=== PATIENT | female | born 1985 | race Caucasian/White ===

== ENCOUNTER 2020-06-19 05:25 | Emergency (ER) | payer OTHER ==
[~2020-06-19] VITALS: Ht 144.8 cm; Wt 59.0 kg
[2020-06-19] MEDS ORDERED: AMOXICILLIN500 MG PO (06:55)
== END 2020-06-19 07:07 | disposition home or self-care (01) ==
LOC: ED 05:25
DX: S06.9X9A Unspecified intracranial injury with loss of consciousness of unspecified duration, initial encounter (principal); K02.9 Dental caries, unspecified; Y04.8XXA Assault by other bodily force, initial encounter; Z87.891 Personal history of nicotine dependence
CPT/HCPCS: 70450; 99284-25

== ENCOUNTER 2023-02-28 13:12 | Emergency (ER) | payer OTHER ==
[~2023-02-28] VITALS: Ht 144.8 cm; Wt 72.6 kg
[~2023-02-28 13:12] MED LIST: AMOXICILLIN500 MG PO
[2023-02-28 18:07] VITALS: BP 131/88
== END 2023-02-28 18:08 | disposition home or self-care (01) ==
LOC: ED 13:12
DX: S86.001A Unspecified injury of right Achilles tendon, initial encounter (principal); W20.8XXA Other cause of strike by thrown, projected or falling object, initial encounter; Z87.891 Personal history of nicotine dependence; Z79.899 Other long term (current) drug therapy
CPT/HCPCS: 99283

== ENCOUNTER 2023-10-05 01:56 | Emergency (ER) | payer OTHER ==
[~2023-10-05] VITALS: Ht 147.3 cm; Wt 69.0 kg
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
[2023-10-05] MEDS ORDERED: BACTRIM DS TAB1 EACH PO (02:20)
[2023-10-05] MEDS ORDERED: TRAMADOL HCL50 MG PO (02:24)
[2023-10-05 02:41] VITALS: BP 139/88
== END 2023-10-05 02:42 | disposition home or self-care (01) ==
LOC: ED 01:56
DX: L03.011 Cellulitis of right finger (principal); S62.624A Displaced fracture of middle phalanx of right ring finger, initial encounter for closed fracture; L03.317 Cellulitis of buttock; L02.31 Cutaneous abscess of buttock; X58.XXXA Exposure to other specified factors, initial encounter; Z87.891 Personal history of nicotine dependence
CPT/HCPCS: 73140; 99283; A9270

== ENCOUNTER 2024-04-29 21:04 | Emergency (ER) | payer OTHER ==
[~2024-04-29] VITALS: Ht 147.3 cm; Wt 77.5 kg
[~2024-04-29 21:04] MED LIST changes: +BACTRIM DS TAB1 EACH PO; +TRAMADOL HCL50 MG PO
--- OUTSIDE RECORDS SUMMARY | 2024-04-29 21:06 | XMS ---
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 Specialist Events No recent Security Events currently on file CRITERIA MET - 6 ED Visits in 6 Months - PDMP CARE PROVIDERS Bobo Lee Community Health Worker 01/14/2023-Current PHONE: [phone] -, [facility] Dentist: Head Chopper [facility] PHONE: [phone] -Bert- Dentist: Head Chopper Current [facility] PHONE: [phone] TAMARA RIVERA Physician Tester [employer] Current PHONE: [phone] MARY Martinez [facility] Current PHONE: Unknown [facility]: [facility] Current [facility] \[facility], [facility] PHONE: [phone] Deion has no Care Guidelines for this patient. Antonio VISIT COUNT (12 MO.) 10 [facility] TOTAL 12 NOTE: Visits indicate total known visits. ED/UCC VISIT TRACKING (12 MO.) 04/29/2024 21:05 [facility] [place] TYPE: Emergency COMPLAINT: - RECTAL BLEEDING 03/25/2024 17:02 [facility] [place] TYPE: Emergency DIAGNOSES: - Noninfective gastroenteritis and colitis, unspecified - ABD PAIN RIGHT SIDE 02/11/2024 15:01 [facility] [place] TYPE: Emergency DIAGNOSES: - Headache, unspecified - Nausea - Pain in right lower leg - Unspecified injury of right wrist, hand and finger(s), initial encounter - HEADACHE VOMITING 01/26/2024 17:29 [facility] [place] TYPE: Emergency DIAGNOSES: - Low back pain, unspecified - BACK PAIN 11/03/2023 16:22 [facility] [place] TYPE: Emergency DIAGNOSES: - Migraine, unspecified, not intractable, without status migrainosus - migraine 11/01/2023 17:50 [facility] [place] TYPE: Emergency DIAGNOSES: - Acute upper respiratory infection, unspecified - Migraine, unspecified, intractable, without status migrainosus - Unspecified nonsuppurative otitis media, bilateral - headache/ ear pain 10/20/2023 04:15 [facility] [place] TYPE: Emergency DIAGNOSES: - Bronchitis, not specified as acute or chronic - Diarrhea, unspecified - SOB COUGH 10/05/2023 01:56 [facility] [place] TYPE: Emergency COMPLAINT: - RT HAND INJURY DIAGNOSES: - Cellulitis of buttock - Cellulitis of right finger - Cutaneous abscess of buttock - Displaced fracture of middle phalanx of right ring finger, initial encounter for closed fracture - Exposure to other specified factors, initial encounter - Personal history of nicotine dependence - Unspecified injury of right wrist, hand and finger(s), initial encounter 09/22/2023 16:22 [facility] [place] TYPE: Emergency DIAGNOSES: - Other sprain of right ring finger, initial encounter - R HAND FINGER INJURY 09/09/2023 12:45 [employer] [place] TYPE: Emergency DIAGNOSES: - Enterocolitis due to Clostridium difficile, not specified as recurrent - adb pain 08[facility]24/2023 05:[facility] DIAGNOSES: - Cutaneous abscess of face - FACIAL SWELLING 08/08/2023 15:33 [facility] [place] TYPE: Emergency DIAGNOSES: - Low back pain, unspecified - BACK PAIN INPATIENT VISIT TRACKING (12 MO.) No inpatient visits to display in this time frame [id number]
[2024-04-29] MEDS ORDERED: SODIUM CHLORIDE 0.9% 1,000 ML IV ONE (21:30)
[2024-04-29] MEDS ORDERED: KETOROLAC TROMETHAMINE 30 MG/ML VIAL IV ONE (21:30)
[2024-04-29 21:45] LABS: BASOPHILS 0.9 % (0-2); EOSINOPHILS 1.8 % (0-6); HEMATOCRIT 39.2 % (35.0-50.0); HEMOGLOBIN 13.2 g/dL (12.0-18.0); LYMPHOCYTES 36.2 % (24-44); MCH 29.5 (27-36); MCHC 33.7 g/dl (30-36); MCV 87.5 fl (81-99); MONOCYTES 12.9 % (0-12); NEUTROPHILS 48.2 % (39-80); PLATELET COUNT 396 K/uL (140-440); RBC 4.48 M/ul (4.3-5.7); RDW 13.7 (10.5-15.0)
[2024-04-29 22:06] LABS: ALBUMIN 3.6 g/dL (3.4-5.0); ALBUMIN/GLOBULIN RATIO 1.06 (1.1-2.4); ANION GAP 10.7 (7-21); BILIRUBIN, TOTAL 0.2 ng/dL (0.2-1.0); BUN/CREATININE RATIO 16.04 (6.0-28.6); CALCIUM 8.5 mg/dL (8.5-10.1); CREATININE, SERUM 0.81 mg/dL (0.55-1.02); POTASSIUM 3.7 mmol/L (3.5-5.1)
[2024-04-29 23:14] LABS: BILIRUBIN, URINE NEGATIVE (negative); BLOOD/HGB, URINE TRACE-I (Negative); KETONE, URINE NEGATIVE (Negative); LEUK ESTERASE, URINE NEGATIVE (negative); NITRITE, URINE NEGATIVE (negative)
[2024-04-29 23:20] LABS: WHITE BLOOD CELLS, URINE 0-1 /HPF (0-5)
[2024-04-29 23:21] LABS: BACTERIA, URINE NONE SEEN /hpf (negative); CASTS, URINE NONE SEEN \\lpf; COLLECTION TYPE, URINE CLEAN CATCH; CRYSTALS, URINE NONE SEEN (0-1+); EPITHELIAL CELLS, URINE SQUAMOUS 1+ /lpf (0-1+); REFLEX CULTURE, URINE No (No)
[2024-04-29] MEDS ORDERED: ANUSOL-HC30 GM PR (23:25)
[2024-04-29 23:44] VITALS: BP 129/87
== END 2024-04-29 23:46 | disposition home or self-care (01) ==
LOC: ED 21:04
PROVIDERS: Family Medicine
DX: K64.9 Unspecified hemorrhoids (principal); Z87.891 Personal history of nicotine dependence
CPT/HCPCS: 36415; 74177; 80053; 81001; 84703; 85025; 99284-25; J1885; J7030; Q9967